=== PATIENT | female | born 1945 | race Caucasian/White ===

== ENCOUNTER 2017-06-30 09:21 | Observation (INO) | payer MEDICARE ==
[2017-06-30 13:24] LABS: Hematocrit 30 % (35-47); Hemoglobin 9.6 g/dl (12.0-16.0); Mean Corpuscular HGB Conc 32 g/dl (31-36); Mean Corpuscular Hemoglobin 28 pg (27-31); Mean Corpuscular Volume 86 fL (80-97); Mean Platelet Volume 8 um3 (7.4-10.4); Red Blood Count 3.49 10^6/ul (4.0-5.4); Red Cell Distribution Width 16 % (10.5-15); White Blood Count 6.6 10^3/ul (3.5-10.8)
[2017-06-30 13:25] LABS: ALT 18 U/L (7-52); AST 22 U/L (13-39); Albumin 3.5 g/dL (3.2-5.2); Alkaline Phosphatase 57 U/L (34-104); Anion Gap 6 mmol/L (2-11); BUN/Creatinine Ratio 24.3 (8-20); Blood Urea Nitrogen 33 mg/dL (6-24); C Reactive Protein 7.24 mg/L (< 5.00); CO2 Carbon Dioxide 29 mmol/L (22-32); Calcium 9.6 mg/dL (8.6-10.3); Chloride 104 mmol/L (101-111); EGFR Non-African American 38.1 (>60); Globulin 5.4 g/dL (2-4); Glucose 200 mg/dL (70-100); Potassium 4.3 mmol/L (3.5-5.0); Sodium 139 mmol/L (133-145); Total Protein 8.9 g/dL (6.4-8.9)
[2017-06-30 13:26] LABS: Troponin I 0.01 ng/mL (<0.04)
--- NOTE | 2017-06-30 13:31 | RAD ---
HISTORY: Seizure, left arm weakness, dementia COMPARISONS: February 02, 2016 TECHNIQUE: Multiple contiguous axial CT scans were obtained of the head without intravenous contrast. FINDINGS: HEMORRHAGE/INFARCT: There is no hemorrhage or acute infarct. MASSES/SHIFT: There is no mass or shift. EXTRA-AXIAL SPACES: There are no extra-axial fluid collections. SULCI AND VENTRICLES: The sulci and ventricles are normal in size and position for the patient's stated age. CEREBRUM: There is multifocal encephalomalacia involving the left frontal lobe, left temporal lobe, left parietal lobe, and right occipital lobe consistent with multiple remote infarcts. These are stable from the previous examination. BRAINSTEM: There are no focal parenchymal abnormalities. CEREBELLUM: There are no focal parenchymal abnormalities. VESSELS: The vessels are grossly normal. PARANASAL SINUSES: The paranasal sinuses are clear. ORBITS: The orbits are unremarkable. BONES AND SOFT TISSUE: No bone or soft tissue abnormalities are noted. OTHER: None IMPRESSION: 1. NO ACUTE INTRACRANIAL PATHOLOGY. 2. 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
[2017-06-30] MEDS ORDERED: LORazepam INJ* 2 MG/ML 1 ML VIAL IV ONE (13:32)
[2017-06-30] MEDS ORDERED: LORazepam INJ* 2 MG/ML 1 ML VIAL ONE (13:32)
[2017-06-30] MEDS: NS 0.9% 1000 ML* 1,000 ML IV SCH ×2 (13:42→19:17)
[2017-06-30 13:51] LABS: Valproic Acid < 13.0 mcg/mL (50-100)
[2017-06-30 14:06] LABS: TSH (Thyroid Stimulating Horm) 1.88 mcIU/mL (0.34-5.60)
[2017-06-30] MEDS ORDERED: Valproic Acid IV(*) 100 MG/ML 5 ML VIAL (500 MG) IVPB ONE (14:18)
[2017-06-30] MEDS ORDERED: VALPROIC ACID 1000 MG IV - ED ONCE IVPB ONE ×2 (15:00)
[2017-06-30] MEDS ORDERED: Acetaminophen TAB* 325 MG PO PRN (15:51)
[2017-06-30] MEDS ORDERED: Polyethylene Glycol 3350* 17 GM PACKET PO PRN (15:51)
[2017-06-30] MEDS ORDERED: Witch Hazel PAD* JAR TOPICAL PRN (15:51)
[2017-06-30] MEDS ORDERED: CHOLECALCIFEROL 50000 UNIT PO SCH (16:00)
--- NOTE | 2017-06-30 16:42 | ED ---
Doni Reid Benjamin, scribed for Kristian Butler MD on 06/30/17 at 1057 . Altered Mental Status - HPI Summary HPI Summary: 72yo female BIBA after having an Sz episode. Per report, pt had a 2 minute sz, then right facial droop and right side weakness. Symptoms resolved when EMS arrived. Pt was disoriented upon arrival. Pt refused physical exam and giving HPI when seen at room. Hx of dentia and Sz. LEVEL 5 CAVEAT uncooperative to exam and dementia. - History Of Current Complaint Chief Complaint: EDSeizure Stated Complaint: SEIZURE - Allergies/Home Medications Allergies/Adverse Reactions: Allergies Allergy/AdvReac Type Severity Reaction Status Date / Time Atorvastatin [From Lipitor] Allergy See Comment Verified 06/30/17 09:36 Pravastatin Allergy See Comment Verified 06/30/17 09:36 PACEMAKER-NO MRI Allergy NO MRI Uncoded 06/30/17 09:36 Home Medications: Home Medications Acetaminophen [Acetaminophen Extra Stren] 1,000 mg PO Q8HR PRN 06/30/17 [ History Confirmed 06/30/17] Cholecalciferol [Vitamin D3] 50,000 unit PO MONTHLY 06/30/17 [History Confirmed 06/30/17] Divalproex DR TAB(*) [Depjorge lte DR TAB(*)] 250 mg PO 1200 06/30/17 [History Confirmed 06/30/17] Divalproex DR TAB(*) [Depakote DR TAB(*)] 500 mg PO BID 06/30/17 [History Confirmed 06/30/17] Polyethylene Glycol 3350* [Miralax*] 17 gm PO BID PRN 06/30/17 [History Confirmed 06/30/17] Sertraline* [Zoloft*] 25 mg PO DAILY 06/30/17 [History Confirmed 06/30/17] Sertraline* [Zoloft*] 50 mg PO DAILY 06/30/17 [History Confirmed 06/30/17] Torsemide TAB* [Demadex*] 20 mg PO DAILY 06/30/17 [History Confirmed 06/30/17] Witch Sammie (Hamamelis Virgini [Preparation H] 50 % TOPICAL DAILY PRN 06/30/17 [ History Confirmed 06/30/17] amLODIPine TAB* [Norvasc 5 mg TAB*] 10 mg PO DAILY 06/30/17 [History Confirmed 06/30/17] PMH/Surg Hx/FS Hx/Imm Hx Endocrine/Hematology History: Reports: Hx Diabetes Denies: Hx Anticoagulant Therapy, Hx Thyroid Disease, Hx Anemia Cardiovascular History: Reports: Hx Auto Implanted Cardiovert Defib, Hx Hypercholesterolemia, Hx Hypertension, Hx Pacemaker/ICD Denies: Hx Aneurysm, Hx Angina, Hx Angioplasty, Hx Cardiac Arrest, Hx Cardiomegaly, Hx Congestive Heart Failure Respiratory History: Denies: Hx Asthma, Hx Chronic Obstructive Pulmonary Disease (COPD) History: Denies: Hx Renal Disease Musculoskeletal History: Reports: Hx Arthritis Sensory History: Reports: Hx Contacts or Glasses, Other Sensory Impairments - L eye periperal vision loss Opthamlomology History: Reports: Hx Contacts or Glasses, Other Sensory Impairments - L eye periperal vision loss Neurological History: Reports: Hx CVA - peripheral vision loss, Hx Dementia - Family reports "questionable dementia", Hx Seizures, Hx Transient Ischemic Attacks (TIA), Other Neuro Impairments/Disorders - L eye periperal vision loss Denies: Hx Headaches, Hx Migraine Psychiatric History: Denies: Hx Substance Abuse - Surgical History Surgery Procedure, Year, and Place: PACEMAKER, hysterectomy Hx Anesthesia Reactions: No Infectious Disease History: No Infectious Disease History: Denies: Hx Hepatitis, Hx Human Immunodeficiency Virus (HIV), Traveled Outside the [place] in Last 30 Days - Family History Known Family History: Positive: Diabetes - mother, Other - gastric cancer - father - Social History Alcohol Use: None Hx Substance Use: No Substance Use Type: Reports: None Hx Tobacco Use: No Smoking Status (MU): Never Smoked Tobacco Review of Systems - ROS Summary Review of Systems Summary: LEVEL 5 CAVEAT uncooperative to exam and dementia. All Other Systems Reviewed And Are Negative: No Physical Exam Triage Information Reviewed: Yes Vital Signs On Initial Exam: Initial Vitals Temp Pulse Resp BP Pulse Ox 98.5 F 64 16 145/68 95 06/30/17 09:31 06/30/17 09:31 06/30/17 09:31 06/30/17 09:31 06/30/17 09:31 Vital Signs Reviewed: Yes Completion Of Physical Exam Limited Due To: Level 5 - LEVEL 5 CAVEAT - refused exam/uncooperative to exam and dementia. Musculoskeletal: Positive: Strength/ROM Intact - pt moves all extremities Psychiatric: Positive: Other - agitated mood, Patient Uncooperative for Exam - Sterling Coma Scale Coma Scale Total: 14 Diagnostics - Vital Signs Vital Signs Temp Pulse Resp BP Pulse Ox 06/30/17 10:00 14 06/30/17 09:46 65 17 97 06/30/17 09:31 98.5 F 64 16 145/68 95 - Laboratory Lab Results: Lab Results 06/30/17 06/30/17 06/30/17 Range/Units 13:00 13:00 13:00 WBC 6.6 (3.5-10.8) 10^3/ul RBC 3.49 L (4.0-5.4) 10^6/ul Hgb 9.6 L (12.0-16.0) g/dl Hct 30 L (35-47) % MCV 86 (80-97) fL MCH 28 (27-31) pg MCHC 32 (31-36) g/dl RDW 16 H (10.5-15) % Plt Count 178 (150-450) 10^3/ul MPV 8 (7.4-10.4) um3 Neut % (Auto) 75.8 (38-83) % Lymph % (Auto) 15.8 L (25-47) % Cross % (Auto) 7.3 (1-9) % Eos % (Auto) 0.6 (0-6) % Baso % (Auto) 0.5 (0-2) % Absolute Neuts (auto) 5.0 (1.5-7.7) 10^3/ul Absolute Lymphs (auto) 1.0 (1.0-4.8) 10^3/ul Absolute Monos (auto) 0.5 (0-0.8) 10^3/ul Absolute Eos (auto) 0 (0-0.6) 10^3/ul Absolute Basos (auto) 0 (0-0.2) 10^3/ul Absolute Nucleated RBC 0 10^3/ul Nucleated RBC % 0 INR (Anticoag Therapy) 0.94 (0.89-1.11) APTT 24.8 L (26.0-36.3) seconds Sodium 139 (133-145) mmol/L Potassium 4.3 (3.5-5.0) mmol/L Chloride 104 (101-111) mmol/L Carbon Dioxide 29 (22-32) mmol/L Anion Gap 6 (2-11) mmol/L BUN 33 H (6-24) mg/dL Creatinine 1.36 H (0.51-0.95) mg/dL Est GFR ( Amer) 49.0 (>60) Est GFR (Non-Af Amer) 38.1 (>60) BUN/Creatinine Ratio 24.3 H (8-20) Glucose 200 H (70-100) mg/dL Lactic Acid (0.5-2.0) mmol/L Calcium 9.6 (8.6-10.3) mg/dL Magnesium 2.0 (1.9-2.7) mg/dL Total Bilirubin 0.40 (0.2-1.0) mg/dL AST 22 (13-39) U/L ALT 18 (7-52) U/L Alkaline Phosphatase 57 (34-104) U/L Troponin I 0.01 (<0.04) ng/mL C-Reactive Protein 7.24 H (< 5.00) mg/L Total Protein 8.9 (6.4-8.9) g/dL Albumin 3.5 (3.2-5.2) g/dL Globulin 5.4 H (2-4) g/dL Albumin/Globulin Ratio 0.6 L (1-3) TSH 1.88 (0.34-5.60) mcIU/mL Valproic Acid < 13.0 L (50-100) mcg/mL // Range/Units 13:00 WBC (3.5-10.8) 10^3/ul RBC (4.0-5.4) 10^6/ul Hgb (12.0-16.0) g/dl Hct (35-47) % MCV (80-97) fL MCH (27-31) pg MCHC (31-36) g/dl RDW (10.5-15) % Plt Count (150-450) 10^3/ul MPV (7.4-10.4) um3 Neut % (Auto) (38-83) % Lymph % (Auto) (25-47) % Cross % (Auto) (1-9) % Eos % (Auto) (0-6) % Baso % (Auto) (0-2) % Absolute Neuts (auto) (1.5-7.7) 10^3/ul Absolute Lymphs (auto) (1.0-4.8) 10^3/ul Absolute Monos (auto) (0-0.8) 10^3/ul Absolute Eos (auto) (0-0.6) 10^3/ul Absolute Basos (auto) (0-0.2) 10^3/ul Absolute Nucleated RBC 10^3/ul Nucleated RBC % INR (Anticoag Therapy) (0.89-1.11) APTT (26.0-36.3) seconds Sodium (133-145) mmol/L Potassium (3.5-5.0) mmol/L Chloride (101-111) mmol/L Carbon Dioxide (22-32) mmol/L Anion Gap (2-11) mmol/L BUN (6-24) mg/dL Creatinine (0.51-0.95) mg/dL Est GFR ( Amer) (>60) Est GFR (Non-Af Amer) (>60) BUN/Creatinine Ratio (8-20) Glucose (70-100) mg/dL Lactic Acid 0.9 (0.5-2.0) mmol/L Calcium (8.6-10.3) mg/dL Magnesium (1.9-2.7) mg/dL Total Bilirubin (0.2-1.0) mg/dL AST (13-39) U/L ALT (7-52) U/L Alkaline Phosphatase (34-104) U/L Troponin I (<0.04) ng/mL C-Reactive Protein (< 5.00) mg/L Total Protein (6.4-8.9) g/dL Albumin (3.2-5.2) g/dL Globulin (2-4) g/dL Albumin/Globulin Ratio (1-3) TSH (0.34-5.60) mcIU/mL Valproic Acid (50-100) mcg/mL Result Diagrams: 06/30/17 13:00 06/30/17 13:00 Lab Statement: Any lab studies that have been ordered have been reviewed, and results considered in the medical decision making process. - CT CT Brain CT Interpretation: No Acute Changes - IMPRESSION: 1. NO ACUTE INTRACRANIAL PATHOLOGY. 2. 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 CT Interpretation Completed By: Radiologist Altered Mental Statu Course/Dx - Course Course Of Treatment: Reviewed pts medication and allergy lists. High Blood pressure noted. Spoke to Johana Gamez, pt's daughter and health proxy about pt refusing treatment at 1141 hour. She will come into ED for further discussion regarding pt's case. Johana Franco contact: [phone]. Consulted Dr. Martinez (Neurology) at 1230 hour regarding pt's case. Consulted Dr. Ferreira (Hospitalist) at 1524 hour regarding pt's case. ADMIT HOSPITALIST. - Diagnoses Discharge Diagnoses: Seizures - Critical Care Time Critical Care Time: 30-74 min Discharge - Discharge Plan Condition: Stable Disposition: ADMITTED TO [facility] documentation as recorded by the Doni landon Benjamin accurately reflects the service I personally performed and the decisions made by me, Kristian Butler MD.
[2017-06-30] MEDS: levETIRAcetam TAB* 500 MG PO SCH (21:24)
[2017-06-30] MEDS: Heparin VIAL(*) 5000 UNITS/ML VIAL (FIVE THOUSAND) SUBCUT SCH ×2 (21:24→22:13)
--- NOTE | 2017-06-30 23:54 | HP ---
HISTORY AND PHYSICAL: DATE OF ADMISSION: 06/30/17 CHIEF COMPLAINT: Seizure. HISTORY OF PRESENT ILLNESS: The patient is a 72-year-old woman, who presents to [facility] from her Residential Facility at [place], who apparently they said she had a seizure earlier in the day. Unfortunately, the daughter did not get any information from the nursing facility as to what the seizure was like. Upon arrival in the ER, the patient was apparently very confused. She also apparently had a facial droop and weakness on the right side , but which resolved by the time she was in the ER. She was confused in the ER and saying strange things to the daughter like they cannot take my blood because on this side of the world, I am only 3 feet tall. Eventually, the patient's daughter was able to get her more reoriented to get the blood drawn. While in the ER, the patient had another seizure like event where she was shaking on one side and her eyes turned to another side as well, which lasted about 45 seconds. There was no tongue biting and no urinary or bowel incontinence. The patient is already on Keppra and valproic acid. The patient cannot have an MRI because of a pacemaker. 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 ALLERGIES: She has an allergy/adverse reaction to ATORVASTATIN and PRAVASTATIN. FAMILY HISTORY: Mother had diabetes. Father had gastric cancer. Brother had coronary artery disease and diabetes. She has a sister with diabetes and colon cancer. SOCIAL HISTORY: No tobacco, alcohol, or recreational drug use. Surrogate decision maker is her daughter, Johana Gamez, her phone number is . CURRENT MEDICATIONS: 1. Tylenol Extra Strength 1000 mg every 8 hours as needed. 2. Sertraline 75 mg daily. 3. Witch rommel, Preparation H 50% topical daily as needed. 4. Amlodipine 10 mg daily. 5. MiraLAX 17 g twice daily as needed. 6. Keppra 500 mg twice a day. 7. Metoprolol succinate 50 mg daily. 8. Depakote ER 250 mg at noon and 500 mg twice daily. 9. Torsemide 20 mg daily. 10. Cholecalciferol 50,000 units monthly. REVIEW OF SYSTEMS: A 14-point review of systems was completed with the patient. All pertinent positives and negatives are in the history of present illness, otherwise it is negative. PHYSICAL EXAMINATION GENERAL: Pleasant woman, lying in bed, in no acute distress. VITAL SIGNS: Temperature is 98.8 degrees, heart rate 78 beats per minute, respiratory rate 20 breaths per minute, pulse ox 99%, blood pressure 155/95. HEENT: Normocephalic, atraumatic. Pupils are equal, round, and reactive to light. Moist mucous membranes. NECK: Supple. No JVD, bruits, palpable thyroid, or lymphadenopathy. CHEST: Clear to auscultation and percussion bilaterally. CARDIOVASCULAR: S1, S2 appreciated. ABDOMEN: Positive bowel sounds in all 4 quadrants. Soft, nontender, and nondistended. EXTREMITIES: No cyanosis, clubbing, or edema. +2 pulses bilaterally. NEUROLOGIC: She is alert and oriented x3. She has got hemianopsia on the left side with no evidence of left-sided peripheral vision. She moves all extremities. She has got about 4/5 motor strength in the upper and lower extremities bilaterally. SKIN: No rashes. DIAGNOSTIC STUDIES/LAB DATA: White count 6.6, hemoglobin 9.6, hematocrit is 30 , platelets 178. Sodium 139, potassium 4.3, chloride 104, CO2 of 29, BUN 33, creatinine 1.36, glucose is 200. INR is 0.95. Depakote level is less than 13. Brain CT was interpreted by Radiology as no acute intracranial pathology, multifocal encephalomalacia consistent with multiple remote infarcts and multiple vascular territories. ASSESSMENT AND PLAN: 1. Seizure: ER spoke with Neurology. Based on the low Depakote level and the patient's seizure activity, we have increased her Depakote to 500 mg 3 times a day. We will recheck Depakote level within the next couple of weeks. We will monitor the patient overnight and if she is still asymptomatic over the next 24 hours, she can likely go back to [place]. 2. Hypertension. Borderline controlled right now. We will monitor current medications and adjust accordingly. 3. Dementia. She showed evidence of this today and recently daughter is concerned. Consider evaluation by Neurology, but this can be done as an outpatient. 4. FEN. Regular diet. 5. DVT prophylaxis, heparin subcu. 8. The patient is a full code. TIME SPENT: Over 75 minutes was spent on this H and P, more than 40 minutes of which was spent in direct cbtl-lm-eata contact with the patient in evaluation, physical exam, counseling, and coordination of care. [id number]/[facility] #: [id number] QUYNH
[2017-07-01] MEDS: Heparin VIAL(*) 5000 UNITS/ML VIAL (FIVE THOUSAND) SUBCUT SCH ×4 (05:38→15:29)
[2017-07-01] MEDS ORDERED: amLODIPine TAB* 5 MG PO SCH (09:00)
[2017-07-01] MEDS ORDERED: Metoprolol Succinate XL TAB* 50 MG PO SCH (09:00)
[2017-07-01] MEDS ORDERED: Sertraline* 25 MG TAB PO SCH (09:00)
[2017-07-01] MEDS ORDERED: Sertraline* 50 MG TAB PO SCH (09:00)
[2017-07-01] MEDS ORDERED: Torsemide TAB* 20 MG PO SCH (09:00)
[2017-07-01] MEDS: levETIRAcetam TAB* 500 MG PO SCH (10:25)
[2017-07-01 14:44] VITALS: BP 110/45
[2017-07-01] MEDS: Divalproex ER TAB(*) 500 MG PO SCH ×2 (14:46→15:28)
--- NOTE | 2017-07-01 23:58 | CONS ---
CC: Dr. Silverio CONSULTATION REPORT: DATE OF CONSULT: 07/01/17 PATIENT OF: Dr. Ferreira. HISTORY OF PRESENT ILLNESS: This is a 72-year-old woman who presented with two seizures yesterday w ith no history of seizures. She had some weakness on the right side but this cleared before she got to the ER but was saying odd things in the ER, but then this cleared. She has a history, though of DICTATION ENDS ABRUPTLY [id number]/CPS #: [id number]
--- NOTE | 2017-07-02 00:15 | CONS ---
CC: Dr. Silverio* CONSULTATION REPORT: DATE OF CONSULT: 07/01/17 PATIENT OF: Dr. Ferreira. HISTORY OF PRESENT ILLNESS: This is a 72-year-old woman who presented with two seizures yesterday with no history of seizures. She had some weakness on the right side but this cleared before she got to the ER but was saying odd things in the ER, but then this cleared. She was admitted for further evaluation. She has had no further seizures since admission. She has had longstanding history of complex partial seizures and apparently this seizure was as far as we can tell a typical seizure for her, she has also had ischemic stroke with hemorrhagic conversion in November of 2015. She has been followed by Dr. Silverio with recent visit . She comes in apparently with history that she is on Depakote in addition to the Keppra, but there is nothing in his note or in triage saying that Depakote is being started. She has apparently psychological problems. It is unclear what the indication of the Depakote was in addition to her Keppra. PAST MEDICAL HISTORY: Other medical problems include diabetes type 2, hypertension, pacemaker with ICD. She has had prior stroke in 2015 and in March 2011. She has had a right upper extremity DVT, hysterectomy, pacemaker placement. MEDICATIONS: Include: 1. Keppra 500 twice a day. 2. Depakote 500, 250, 500. 3. Zoloft 50 one and a half tabs every day. 4. Seroquel 25 mg daily. 5. MiraLAX 17 g daily. 6. Metoprolol 50 mg daily. 7. Amlodipine 5 mg p.o. every day. This is all from her outpatient chart. Her current medications per her history here include: 1. Sertraline 75 mg. 2. Amlodipine 10 mg daily. 3. Keppra 500 twice a day. 4. Metoprolol 50 daily. 5. Depakote as described. 6. Torsemide 20 mg daily. 7. Calciferol 50,000 units monthly. ALLERGIES: She is allergic to ATORVASTATIN, PRAVASTATIN. FAMILY HISTORY: Mother had diabetes. Father had gastric cancer. Brother had coronary artery disease and diabetes. SOCIAL HISTORY: She does not drink, smoke or use recreational drugs. REVIEW OF SYSTEMS: Negative in all 14 spheres other than in the HPI. PHYSICAL EXAM: On exam, temperature 98.3, pulse 77, respirations 20, blood pressure 155/95. She was alert and interactive. She knew her name and where she was. She was not particularly cooperative, but wanting to know whether she is going to stay in the hospital. She spoke in complete sentences for me. Cranial nerves II through XII were normal. Fundi showed normal red reflex. She is not cooperative with funduscopic exam. Motor exam revealed normal tone and strength. Reflexes were 1. Toes were downgoing. Chest: Clear. Cardiovascular: Regular rate and rhythm. Abdomen: Soft with positive bowel sounds. DIAGNOSTIC STUDIES/LAB DATA: Her CT scan was reviewed, which showed no acute changes, but did have multifocal encephalomalacia. Labs included white count 6.6, hematocrit of 30, platelets of 178. INR is 0.94. PTT 24.8. Normal CMP other than BUN of 33, creatinine of 1.36. Glucose of 200. C-reactive protein 0.25. Normal thyroid. Depakote was less than 13. Keppra was less than 2.0. ASSESSMENT: It sounds like she has chronic seizure disorder and has not been compliant some way with her medication. We loaded her with Depakote yesterday and her Depakote was increased to 500 three times a day and we will need a level in a few weeks time. We did not adjust her Keppra or increase it. I think she will need Keppra levels as well, but I am concerned since it sounds like she has mental health issues whether Keppra may be contributing to mood issues. I will defer to Dr. Silverio as outpatient what we need to do with this. From what I gather from family what is described in the ER, this is a typical seizure for her. Thank you for sharing her case. [id number]/[facility]PS #: [id number]/[facility]PS #: [id number] QUYNH
--- NOTE | 2017-07-02 02:43 | DS ---
CC: Subhash Martinez MD; Flakita Rocha* DISCHARGE SUMMARY: DATE OF ADMISSION: 06/30/17 DATE OF DISCHARGE: 07/01/17 PRIMARY CARE PROVIDER: Flakita Rocha. ADMISSION DIAGNOSES: 1. Seizure. 2. History of hemorrhagic cerebrovascular accident. 3. Hypertension. 4. Type 2 diabetes. 5. Second-degree heart block, status post permanent pacemaker placement. 6. Right upper extremity deep venous thrombosis. DISCHARGE DIAGNOSES: 1. Seizure. 2. History of hemorrhagic cerebrovascular accident. 3. Hypertension. 4. Type 2 diabetes. 5. Second-degree heart block, status post permanent pacemaker placement. 6. Right upper extremity deep venous thrombosis. HOSPITAL COURSE: The patient is a 72-year-old woman who was in her usual state of health until yesterday when she was observed to have a seizure-like activity at this nursing facility she resides in. She was sent over to the hospital where she apparently had another seizure. A Depakote level was done, which was low. It is unclear as to why it is low at this time as she is supposedly compliant. Neurology saw the patient and recommended increasing her Depakote level to 500 mg 3 times a day. The patient was completely asymptomatic for her entire stay here. The patient was stable to be discharged back to long term facility on 07/01/17. It should be noted that the patient cannot have an MRI due to pacemaker placement. This was discussed at length with the daughter. We will discharge the patient. We will have a followup with her neurologist in 1 to 2 weeks as well as checking her valproic acid level in the next 1 to 2 days. This was explained entirely to her daughter, who is in agreement with the plan. PHYSICAL EXAM ON THE DATE OF DISCHARGE: Overweight woman lying in bed, in no acute distress. Vital Signs: Temperature 98.2 degrees, heart rate 72 beats per minute, respiratory rate 18 breaths per minute, pulse ox 99%, blood pressure is /80. HEENT: Normocephalic, atraumatic. Pupils equal, round, and reactive to light. Moist mucous membranes. Neck: Supple. No JVD, bruits, palpable thyroid or lymphadenopathy. Chest is clear to auscultation and percussion bilaterally. Cardiovascular Exam: S1 and S2 appreciated. Abdominal Exam: Positive bowel sounds in all 4 quadrants, soft, nontender, nondistended. Extremities: No cyanosis, clubbing, or edema. +2 peripheral pulses bilaterally. Neuro: Alert and oriented x3. Moves all extremities. She has got left hemianopsia. STUDIES DONE WHILE IN THE HOSPITAL: Brain CT, 06/30/17, impression: No acute intracranial pathology. Multifocal encephalomalacia consistent with multiple remote infarcts in multiple vascular territories. DISCHARGE MEDICATIONS: 1. Acetaminophen 1000 mg every 8 hours as needed. 2. Sertraline 75 mg daily. 3. 50% topically daily. 4. Amlodipine 10 mg daily. 5. MiraLax 17 g twice a day as needed. 6. Metoprolol succinate 50 mg daily. 7. Torsemide 20 mg daily. 8. Cholecalciferol 50,000 units monthly. 9. Divalproex ER 500 mg 3 times a day. This is an increase from the 500 mg twice a day and 250 mg in the middle of the day, the dose she was on before. DISCHARGE PLAN: The patient will be discharged back to nursing facility. Should she have a repeat valproic acid level in 1 to 2 weeks, she should follow up with her neurologist in 1 to 2 weeks. She will return to the ED if symptoms recur. TIME SPENT: Over 45 minutes was spent on this discharge, more than 25 minutes of which was spent in direct bcjd-[id number]-teyx contact with the patient in evaluation , physical exam, counseling, and coordination of care. [id number]/[facility] #: [id number] QUYNH
--- NOTE | 2017-07-02 03:18 | PN ---
CC: Dr. Silverio.* NEUROLOGICAL FOLLOWUP NOTE: DATE OF VISIT: 07/01/2017. HISTORY: Eugenia has had no further seizures and has no specific complaints. CURRENT MEDICATIONS: Include her increased Depakote 500 three times a day. Her Keppra remains the same and her other medications are as is. PHYSICAL EXAMINATION: Temperature 98.3, pulse 75, respirations 18, blood pressure 110/45. She is alert and spoke in complete sentences. Cranial nerves II through XII are intact. Motor exam revealed normal strength and coordination. Chest: Clear. Cardiovascular: Regular rate and rhythm. Abdomen : Soft with positive sounds. ASSESSMENT AND PLAN: Eugenia most likely had a breakthrough seizure due to poor compliance. I have increased her Depakote and she will need levels as an outpatient and followup with Dr. Silverio. There has been concern of increasing memory issues over many months or longer and this will be followed as an outpatient as well. Thank you for sharing her case. [id number]/[facility] #: [id number] QUYNH
== END 2017-07-01 18:53 | disposition home or self-care (01) ==
LOC: ED 09:21 → MEDTELE 15:55
PROVIDERS: ADMIT Internal Medicine; ATTEND Internal Medicine
DX: R56.9 Unspecified convulsions (principal); Z86.73 Personal history of transient ischemic attack (TIA), and cerebral infarction without residual deficits; G93.89 Other specified disorders of brain; I10 Essential (primary) hypertension; F03.90 Unspecified dementia, unspecified severity, without behavioral disturbance, psychotic disturbance, mood disturbance, and anxiety; R29.810 Facial weakness; Z79.899 Other long term (current) drug therapy; Z95.0 Presence of cardiac pacemaker; E11.9 Type 2 diabetes mellitus without complications; I44.1 Atrioventricular block, second degree; I82.721 Chronic embolism and thrombosis of deep veins of right upper extremity
CPT/HCPCS: 36415; 70450; 80053; 80164; 80177; 83605; 83735; 84443; 84484; 85025; 85610; 85730; 86140; 96361; 96374; 96375; 99291; A9270-GY; G0378; J1644; J2060